=== PATIENT | male | born 1995 ===

== ENCOUNTER 2017-06-01 20:58 | Emergency (ER) | payer SELFPAY ==
[2017-06-01 21:11] VITALS: RESP 20; O2SAT 100
--- NOTE | 2017-06-01 22:29 | C.PDOC ---
History Of Present Illness A 22 y/o M c/o pain and swelling to the right ankle that occurred [employer]. Pt notes playing basketball where he jumped up and landed twisting his right ankle. Denies weakness, numbness, or any other complaints. Time Seen by Provider: 06/01/17 21:05 Chief Complaint (Nursing): Lower Extremity Problem/Injury History Per: Patient History/Exam Limitations: no limitations Onset/Duration Of Symptoms: Hrs Current Symptoms Are (Timing): Still Present Severity: Mild Recent travel outside of the [place]: No Additional History Per: Patient - Ankle/Foot Description Of Injury: Twisted Currently Unable To: Bear Weight Past Medical History Reviewed: Historical Data, Nursing Documentation, Vital Signs Vital Signs: Last Vital Signs Temp 98.5 F 06/01/17 22:54 Pulse 74 06/01/17 22:54 Resp 20 06/01/17 22:54 BP 136/82 06/01/17 22:54 Pulse Ox 100 06/02/17 00:15 Family History: States: Unknown Family Hx - Social History Hx Alcohol Use: Yes Hx Substance Use: No - Immunization History Hx Tetanus Toxoid Vaccination: No Hx Influenza Vaccination: Yes Hx Pneumococcal Vaccination: No Review Of Systems Except As Marked, All Systems Reviewed And Found Negative. Musculoskeletal: Positive for: Foot Pain (Pain and swelling to the right ankle) Neurological: Negative for: Weakness, Numbness Physical Exam - Physical Exam Appears: Non-toxic, No Acute Distress Skin: Warm, Dry Head: Atraumatic, Normacephalic Eye(s): bilateral: Normal Inspection, PERRL Extremity: Tenderness (Rt Lateral malleolus. No foot tenderness), Capillary Refill (<2secs), No Deformity, Swelling (moderate swelling to the Rt lateral malleolus) Extremity: Right: Normal Color And Temperature, Painful To Bear Weight Pulses: Left Dorsalis Pedis: Normal, Right Dorsalis Pedis: Normal Neurological/Psych: Oriented x3, Normal Speech, Normal Cognition, Normal Motor, Normal Sensation, Other (No focal deficit) Gait: Unable To Assess (due to pain) ED Course And Treatment O2 Sat by Pulse Oximetry: 100 (RA) Pulse Ox Interpretation: Normal - Other Rad Rt ankle X-Ray: Interpreted by Me, Viewed By Me Interpretation: Mod soft tissue swelling, no fxor dislocation Progress Note: Impression: A 22 M y/o c/o pain and swelling to the right ankle that occurred [employer]. Plans: Tylenol, XRAY right foot, vish wrap, air cast crutches , Reassess. XRAY right foot: NO fractures or dislocation. Vish Wrap and air cast placed by CP. Pt advised to follow up with orthopedist within 1-2 days for further evaluation. Pt educated in crutch walking Disposition Counseled Patient/Family Regarding: Diagnosis, Need For Followup, Rx Given - Disposition Referrals: Valeriano Devries III, MD [Staff Provider] - Disposition: HOME/ ROUTINE Disposition Time: 22:26 Condition: STABLE Additional Instructions: Apply ICE to area Leg elevation Follow up with PMD/ orthopedist Return to ER if worse Prescriptions: Ibuprofen [Motrin] 600 mg PO Q6H #30 tab Instructions: Ankle Sprain (ED), Ankle Stirrup Splint (ED) Print Language: HONDURAN - Clinical Impression Clinical Impression: Right ankle sprain - Scribe Statement The provider has reviewed the documentation as recorded by the Adrianaibtiana loving All medical record entries made by the Adrianaibtiana were at my direction and personally dictated by me. I have reviewed the chart and agree that the record accurately reflects my personal performance of the history, physical exam, medical decision making, and the department course for this patient. I have also personally directed, reviewed, and agree with the discharge instructions and disposition.
[2017-06-01] MEDS ORDERED: Bacitracin 500 Units/gm Oint Foilpak UD ONE (22:45)
[2017-06-01 22:55] VITALS: BP 136/82; PULSE 74; TEMP 98.5
--- NOTE | 2017-06-02 09:24 | RAD ---
PROCEDURE: Right Ankle Radiographs. HISTORY: Pain s/p fall COMPARISON: None FINDINGS: BONES: Bone alignment and mineralization are normal. There is no acute displaced fracture or bone destruction. JOINTS: Normal. Ankle mortise maintained. Talar dome intact SOFT TISSUES: There is moderate lateral soft tissue swelling. OTHER FINDINGS: None. IMPRESSION: No acute displaced fracture or dislocation. Moderate lateral soft tissue swelling.
== END 2017-06-01 22:56 | disposition home or self-care (01) ==
LOC: C.ER 20:58 → MERGE 20:58 → C.ER 22:56
DX: S93.401A Sprain of unspecified ligament of right ankle, initial encounter (principal); X50.1XXA Overexertion from prolonged static or awkward postures, initial encounter; Y93.67 Activity, basketball; Y92.310 Basketball court as the place of occurrence of the external cause